=== PATIENT | female | born 1950 | race Caucasian/White ===

== ENCOUNTER 2017-02-04 08:09 | Emergency (ER) | payer MEDICARE, MEDICAID ==
[2017-02-04 09:28] LABS: ABSOLUTE LYMPHOCYTES (AUTO) 1.1 10^3/uL (0.5-4.7); ABSOLUTE MONOCYTES (AUTO) 0.4 10^3/uL (0.1-1.4); ABSOLUTE NEUT (AUTO) 6.5 10^3/uL (1.7-8.2); BASOPHILS % (AUTO) 0.5 % (0-2); EOSINOPHILS % (AUTO) 0.3 % (0-6); HEMATOCRIT 45.2 % (36.0-47.0); HEMOGLOBIN 15.7 g/dL (12.0-15.5); HGB HCT DIFFERENCE 1.9; LYMPHOCYTES % (AUTO) 14.2 % (13-45); MEAN CORPUSCULAR HEMOGLOBIN 31.7 pg (27.0-33.4); MEAN CORPUSCULAR HGB CONC 34.8 g/dL (32.0-36.0); MEAN CORPUSCULAR VOLUME 91 fl (80-97); MONOCYTES % (AUTO) 4.4 % (3-13); RED BLOOD COUNT 4.96 10^6/uL (3.72-5.28); RED CELL DISTRIBUTION WIDTH 14.4 % (11.5-14.0); SEGMENTED NEUTROPHILS % (AUTO) 80.6 % (42-78)
[2017-02-04 09:34] LABS: APPEARANCE,URINE SLIGHTLY-CLOUDY; BILIRUBIN,URINE NEGATIVE (NEGATIVE); GLUCOSE, URINE NEGATIVE (NEGATIVE); KETONES,URINE 20 mg/dL (NEGATIVE); LEUKOCYTE ESTERASE,URINE NEGATIVE (NEGATIVE); NITRITE,URINE NEGATIVE (NEGATIVE); PROTEIN,URINE 100 mg/dL (NEGATIVE); URINE SPECIFIC GRAVITY 1.012; UROBILINOGEN,URINE NEGATIVE mg/dL (<2.0)
[2017-02-04 09:53] LABS: ALANINE AMINOTRANSFERASE 31 U/L (9-52); ALBUMIN 4.4 g/dL (3.5-5.0); ALKALINE PHOSPHATASE 77 U/L (38-126); ANION GAP 9 (5-19); ASPARTATE AMINO TRANSFERASE 19 U/L (14-36); BILIRUBIN,TOTAL 0.7 mg/dL (0.2-1.3); BLOOD UREA NITROGEN 14 mg/dL (7-20); CARBON DIOXIDE 26 mmol/L (22-30); CHLORIDE 101 mmol/L (98-107); CREATININE RESULT 1.01 mg/dL (0.52-1.25); GLUCOSE 107 mg/dL (75-110); LIPASE 147.3 U/L (23-300); POTASSIUM 4.5 mmol/L (3.6-5.0); SODIUM 136.3 mmol/L (137-145); TOTAL PROTEIN 6.9 g/dL (6.3-8.2)
--- NOTE | 2017-02-04 11:14 | ER Document Report ---
ED Medical Screen (RME) - General Chief Complaint: Abdominal Pain Stated Complaint: STOMACH PAIN Time seen by provider: 11:12 Mode of Arrival: Ambulatory Information source: Patient Notes: 66-year-old female presents to ED for abdominal pain nausea and vomiting and diarrhea for 3 days states no diarrhea today since she took Kaopectate yesterday. Her primary doctor is Dr. Moreno. She denies any past medical history to do with her abdomen. She states she smokes a pack a day drinks weekly with no drugs. I have greeted and performed a rapid initial assessment of this patient. A comprehensive ED assessment and evaluation of the patient, analysis of test results and completion of medical decision making process will be conducted by an additional ED providers. TRAVEL OUTSIDE OF THE [place] IN LAST 30 DAYS: No - Related Data Allergies/Adverse Reactions: Penicillins Allergy (Severe, Verified 02/04/17 08:13) Anaphylaxis Past Medical History - Social History Chew tobacco use (# tins/day): No Frequency of alcohol use: None Drug Abuse: None Renal/ Medical History: Denies: Hx Peritoneal Dialysis Past Surgical History: Reports: Hx Appendectomy, Hx Section - x2 - Immunizations Hx Diphtheria, Pertussis, Tetanus Vaccination: - unknown Course - Laboratory Result Diagrams: 02/04/17 09:14 02/04/17 09:14 Laboratory results interpreted by me: 02/04/17 02/04/17 02/04/17 09:14 09:14 09:14 Hgb 15.7 H RDW 14.4 H Seg Neutrophils % 80.6 H Sodium 136.3 L Est GFR (Non-Af Amer) 55 L Urine Protein 100 H Urine Ketones 20 H
[2017-02-04] MEDS ORDERED: IPRATROPIUM/ALBUTEROL 0.5-2.5 MG/3 ML AMPUL NEB ONE (11:33)
[2017-02-04] MEDS ORDERED: ONDANSETRON HCL INJ/PF 4 MG/2 ML SDV IV ONE (11:33)
[2017-02-04] MEDS ORDERED: PREDNISONE 20 MG TABLET PO ONE (11:33)
[2017-02-04] MEDS ORDERED: DEXTROSE 5%-LACTATED RINGERS 1,000 ML IV ONE (11:33)
[2017-02-04] MEDS ORDERED: ALBUTEROL SULFATE 0.083% NEB 2.5 MG/3 ML AMPUL NEB ONE ×2 (11:33→14:05)
--- NOTE | 2017-02-04 11:36 | ER Document Report ---
ED General - General Time seen by provider: 11:25 Mode of Arrival: Ambulatory Information source: Patient TRAVEL OUTSIDE OF THE [place] IN LAST 30 DAYS: No - HPI Onset: Other - see HPI note Associated symptoms: Diarrhea, Nausea, Vomiting, Rhinnorhea, Weakness. denies: Fever <NIMO REARDON - Last Filed: 02/04/17 11:41> <ANAROSE - Last Filed: 02/04/17 14:34> - General Chief Complaint: Abdominal Pain Stated Complaint: STOMACH PAIN Notes: Patient is a 66 year old female presenting to the emergency department for nausea, vomiting, diarrhea, and abdominal pain. Patient reports abdominal pain but does not complain of any now. Patient states she has had these symptoms for a few days. Patient states she vomited x2 on Thursday and x1 on Thursday. Patient states she had an episode of diarrhea x1 yesterday morning. Patient also complains of generalized weakness and a productive cough with white sputum. Patient states she is hungry but cannot eat due to nausea. Patient denies any fever. Patient's PCP is Dr. Moreno. Patient is allergic to penicillin. (NIMO REARDON) - Related Data Allergies/Adverse Reactions: Penicillins Allergy (Severe, Verified 02/04/17 08:13) Anaphylaxis Past Medical History - General Information source: Patient - Social History Smoking Status: Current Every Day Smoker Cigarette use (# per day): Yes - 1 ppd Chew tobacco use (# tins/day): No Frequency of alcohol use: None Drug Abuse: None Family History: None Patient has suicidal ideation: No Patient has homicidal ideation: No - Past Medical History Cardiac Medical History: Reports: Hx Hypercholesterolemia Pulmonary Medical History: Reports: Hx COPD Psychiatric Medical History: Reports: Hx Anxiety Past Surgical History: Reports: Hx Appendectomy, Hx Section - x2 - Immunizations Hx Diphtheria, Pertussis, Tetanus Vaccination: - unknown <NIMO REARDON - Last Filed: 02/04/17 11:41> Review of Systems - Review of Systems Constitutional: See HPI, Malaise, Weakness. denies: Fever EENT: No symptoms reported Cardiovascular: No symptoms reported Respiratory: No symptoms reported Gastrointestinal: See HPI, Abdominal pain, Diarrhea, Nausea, Vomiting Genitourinary: No symptoms reported Female Genitourinary: No symptoms reported Musculoskeletal: No symptoms reported Skin: No symptoms reported Hematologic/Lymphatic: No symptoms reported Neurological/Psychological: No symptoms reported -: Yes All other systems reviewed and negative <ARLINKEESHANIMO - Last Filed: 02/04/17 11:41> Physical Exam - General General appearance: Appears well, Alert In distress: Mild - HEENT Head: Normocephalic, Atraumatic Eyes: Normal Pupils: PERRL Nasal: Clear rhinorrhea Mucous membranes: Moist - Respiratory Respiratory status: No respiratory distress. No: Other - dyspneic Chest status: Nontender Breath sounds: Rhonchi - diffuse, Wheezing - diffuse Chest palpation: Normal - Cardiovascular Rhythm: Regular Heart sounds: Normal auscultation Murmur: No - Abdominal Inspection: Normal Distension: No distension Bowel sounds: Normal Tenderness: Nontender Organomegaly: No organomegaly - Back Back: Normal, Nontender - Extremities General upper extremity: Normal inspection, Normal ROM, Normal strength General lower extremity: Normal inspection, Normal ROM, Normal strength - Neurological Neuro grossly intact: Yes Cognition: Normal Orientation: AAOx4 Sage Coma Scale Eye Opening: Spontaneous [place] Coma Scale Verbal: Oriented [place] Coma Scale Motor: Obeys Commands Sage Coma Scale Total: 15 Speech: Normal - Psychological Associated symptoms: Normal affect, Normal mood - Skin Skin Temperature: Warm Skin Moisture: Dry <NIMO REARDON - Last Filed: 02/04/17 11:41> Course - Laboratory Result Diagrams: 02/04/17 09:14 02/04/17 09:14 <NIMO REARDON - Last Filed: 02/04/17 11:41> - Laboratory Result Diagrams: 02/04/17 09:14 02/04/17 09:14 - Diagnostic Test Radiology reviewed: Image reviewed, Reports reviewed - Chest x-ray shows COPD without infiltrate. <ROSE PEREZ - Last Filed: 02/04/17 14:34> - Re-evaluation Re-evalutation: 02/04/17 14:06 Review of lab work shows a hemoglobin of 15.7, it was 13.25 months ago. This would suggest the patient is somewhat dehydrated. Her breathing has improved with the breathing treatments and she has received 1 L of IV fluid so far. She will get additional breathing treatments and IV fluids. 02/04/17 14:29 The patient refuses additional fluids or breathing treatments and wants to go home and drink water. I suspect she needs a cigarette quite badly. (ROSE PEREZ) - Vital Signs Vital signs: Temp Pulse Resp BP Pulse Ox 98.4 F 72 16 117/69 89 L 02/04/17 14:23 02/04/17 14:23 02/04/17 14:23 02/04/17 14:23 02/04/17 14:23 - Laboratory Laboratory results interpreted by me: 02/04/17 02/04/17 02/04/17 09:14 09:14 09:14 Hgb 15.7 H RDW 14.4 H Seg Neutrophils % 80.6 H Sodium 136.3 L Est GFR (Non-Af Amer) 55 L Urine Protein 100 H Urine Ketones 20 H Discharge <NIMO REARDON - Last Filed: 02/04/17 11:41> <ROSE PEREZ - Last Filed: 02/04/17 14:34> - Discharge Clinical Impression: Acute exacerbation of chronic obstructive pulmonary disease (COPD), Nausea vomiting and diarrhea, Dehydration Upper respiratory tract infection Qualifiers: URI type: unspecified URI Qualified Code(s): J06.9 - Acute upper respiratory infection, unspecified Condition: Stable Disposition: HOME, SELF-CARE Additional Instructions: Bronchitis with Bronchospasm (Wheezing): You have bronchitis with bronchospasm (wheezing). Sometimes people develop wheezing with a chest cold. This occurs either because of an underlying tendency toward asthma or because the virus itself irritates the bronchial tubes. This irritation causes cough, shortness of breath, and wheezing. Emergency treatment of bronchospasm may include adrenaline shots or bronchodilator aerosol. You may feel lightheaded and have a rapid pulse for an hour or two. Rest and get plenty of fluids. At home, we'll treat you with a bronchodilator inhaler. Corticosteroids may be required for some patients. Until you recover, avoid chemical fumes, dusts, pollens, and exercising in very cold or dry air. If you smoke, stop now! Most cases of bronchitis get better without antibiotics. We prescribe antibiotics when we believe bacteria are damaging your airways, or if there's high risk the bronchitis will worsen into pneumonia. Increase your fluid intake. A cool mist humidifier may make your lungs more comfortable. An expectorant (cough medicine that loosens phlegm) can help. Repeated episodes of bronchitis and bronchospasm may result in lung damage -- for example, chronic bronchitis, recurrent pneumonias, or emphysema. If you develop a fever, increased wheezing, chest pain, or severe shortness of breath, you should contact the doctor immediately. Gastroenteritis: You most likely have gastroenteritis. This is an irritation of the stomach and intestinal tract. It's usually caused by a virus, but can also be caused by bacteria, toxins that cause food poisoning, or excessive alcohol intake. Symptoms may include fever, painful abdominal cramps, nausea, vomiting , and diarrhea. Start with small amounts (two to six ounces) of clear liquids (soft drinks , herb teas, broth, etc). Try to take fluids frequently even if you are vomiting, to prevent dehydration. When liquids are being consumed successfully , advance to small amounts of bland food (mashed potato, toast) for 6 - 12 hours. Gastroenteritis rarely requires medication. It goes away by itself. Use good handwashing so you don't spread germs. Wash underwear in very hot water. If symptoms are severe, talk to the doctor. Call your physician if blood appears in your vomitus or stool, if vomiting lasts longer than 24 hours, if the abdominal pain worsens or becomes localized to one area, or if you develop high fever. START THE PREDNISONE AND ZITHROMAX TOMORROW. USE THE INHALER 2 PUFFS EVERY FOUR HOURS FOR WHEEZING. DRINK PLENTY OF FLUIDS. FOLLOW UP WITH DR. LACKEY IF NOT IMPROVING. RETURN TO THE EMERGENCY ROOM IF ANY NEW OR WORSENING SYMPTOMS. Prescriptions: Albuterol Sulfate [Proair HFA] 1 - 2 puff IH Q4 PRN #1 inhaler PRN Reason: Azithromycin [Zithromax 250 mg Tablet] 250 mg PO DAILY #4 tablet Prednisone [Deltasone 10 mg Tablet] 10 mg PO ASDIR PRN #21 tablet PRN Reason: Referrals: DUSTIN LACKEY MD [Primary Care Provider] - Follow up as needed Scribe Attestation: 02/04/17 14:34 I personally performed the services described in the documentation, reviewed and edited the documentation which was dictated to the scribe in my presence, and it accurately records my words and actions. (ROSE PEREZ) Scribe Documentation - Scribe Written by Charliee:: Nimo Reardon 02/04/17 13:45 acting as scribe for :: Ana <NIMO REARDON - Last Filed: 02/04/17 11:41>
[2017-02-04] MEDS ORDERED: NORMAL SALINE 1000 ML 1,000 ML IV ONE (14:05)
[2017-02-04] MEDS ORDERED: AZITHROMYCIN 250 MG TABLET PO ONE (14:07)
[2017-02-04 14:26] VITALS: BP 117/69
== END 2017-02-04 14:47 | disposition home or self-care (01) ==
LOC: ER 08:09
DX: J44.1 Chronic obstructive pulmonary disease with (acute) exacerbation (principal); J06.9 Acute upper respiratory infection, unspecified; E86.0 Dehydration; R11.2 Nausea with vomiting, unspecified; R19.7 Diarrhea, unspecified; R10.9 Unspecified abdominal pain; R53.1 Weakness; F17.200 Nicotine dependence, unspecified, uncomplicated
CPT/HCPCS: 94640 ×2; 99284; 96374; 36415; 83690; 85025; 80053; 81001; 71010; A9270 ×4; J2405; J7512; J7620

== ENCOUNTER 2017-05-18 10:59 | Emergency (ER) | payer MEDICARE, MEDICAID ==
[2017-05-18] MEDS ORDERED: NORMAL SALINE 1000 ML 1,000 ML IV PRN (11:27)
[2017-05-18] MEDS ORDERED: MECLIZINE HCL 25 MG TABLET PO ONE (11:27)
--- NOTE | 2017-05-18 11:28 | ER Document Report ---
ED Medical Screen (RME) - General Chief Complaint: Dizziness Stated Complaint: ABDOMINAL PAIN Time Seen by Provider: 05/18/17 11:22 Mode of Arrival: Wheelchair Information source: Patient TRAVEL OUTSIDE OF THE [place] IN LAST 30 DAYS: No - HPI Patient complains to provider of: dizziness, nausea Notes: 05/18/17 11:27 Patient is a 66-year-old female with history of [place] and COPD, who currently smokes 1 pack per day, she presents to the emergency room complaining of 2 week history of intermittent dizziness with nausea, blurred vision, occasional vomiting, she denies a headache, denies pain anywhere, denies dysuria, no fever , she does report urinary frequency over the past few days - Related Data Allergies/Adverse Reactions: Penicillins Allergy (Severe, Verified 05/18/17 11:19) Anaphylaxis Past Medical History - Past Medical History Cardiac Medical History: Reports: Hx Hypercholesterolemia Pulmonary Medical History: Reports: Hx COPD Renal/ Medical History: Denies: Hx Peritoneal Dialysis Psychiatric Medical History: Reports: Hx Anxiety Past Surgical History: Reports: Hx Appendectomy, Hx Section - x2 - Immunizations Hx Diphtheria, Pertussis, Tetanus Vaccination: - unknown Physical Exam - Vital signs Vitals: Temp Pulse Resp BP Pulse Ox 97.7 F 71 22 H 101/67 98 05/18/17 11:20 05/18/17 11:20 05/18/17 11:20 05/18/17 11:20 05/18/17 11:20 Course - Vital Signs Vital signs: Temp Pulse Resp BP Pulse Ox 97.7 F 71 22 H 101/67 98 05/18/17 11:20 05/18/17 11:20 05/18/17 11:20 05/18/17 11:20 05/18/17 11:20
[2017-05-18 11:59] LABS: ABSOLUTE EOSINOPHILS # (AUTO) 0.2 10^3/uL (0.0-0.6); ABSOLUTE LYMPHOCYTES (AUTO) 1.9 10^3/uL (0.5-4.7); ABSOLUTE MONOCYTES (AUTO) 0.6 10^3/uL (0.1-1.4); ABSOLUTE NEUT (AUTO) 6.8 10^3/uL (1.7-8.2); BASOPHILS % (AUTO) 0.4 % (0-2); HEMATOCRIT 48.9 % (36.0-47.0); HEMOGLOBIN 16.1 g/dL (12.0-15.5); HGB HCT DIFFERENCE -0.6; LYMPHOCYTES % (AUTO) 20.3 % (13-45); MEAN CORPUSCULAR HEMOGLOBIN 31.2 pg (27.0-33.4); MEAN CORPUSCULAR HGB CONC 32.9 g/dL (32.0-36.0); MEAN CORPUSCULAR VOLUME 95 fl (80-97); MONOCYTES % (AUTO) 5.9 % (3-13); RED BLOOD COUNT 5.16 10^6/uL (3.72-5.28); RED CELL DISTRIBUTION WIDTH 12.9 % (11.5-14.0); SEGMENTED NEUTROPHILS % (AUTO) 71.4 % (42-78); WHITE BLOOD COUNT 9.6 10^3/uL (4.0-10.5)
[2017-05-18 12:22] LABS: ALANINE AMINOTRANSFERASE 15 U/L (9-52); ALBUMIN 4.2 g/dL (3.5-5.0); ALKALINE PHOSPHATASE 63 U/L (38-126); ANION GAP 11 (5-19); ASPARTATE AMINO TRANSFERASE 17 U/L (14-36); BILIRUBIN,DIRECT 0.4 mg/dL (0.0-0.4); BILIRUBIN,TOTAL 0.6 mg/dL (0.2-1.3); BLOOD UREA NITROGEN 18 mg/dL (7-20); CALCIUM 9.8 mg/dL (8.4-10.2); CARBON DIOXIDE 25 mmol/L (22-30); CHLORIDE 105 mmol/L (98-107); CREATINE KINASE 38 U/L (30-135); CREATININE RESULT 1.21 mg/dL (0.52-1.25); GLUCOSE 97 mg/dL (75-110); LIPASE 282.2 U/L (23-300); POTASSIUM 4.8 mmol/L (3.6-5.0); SODIUM 141.3 mmol/L (137-145)
[2017-05-18 12:33] LABS: CREATINE KINASE MB 0.98 ng/mL (<4.55); TROPONIN I 0.014 ng/mL
--- NOTE | 2017-05-18 13:39 | RADIOLOGY REPORT (SQ) ---
EXAM DESCRIPTION: CHEST PA/LAT COMPLETED DATE/TIME: 05/18/2017 1:21 pm REASON FOR STUDY: sob COMPARISON: 02/04/2017 EXAM PARAMETERS: NUMBER OF VIEWS: two views TECHNIQUE: Digital Frontal and Lateral radiographic views of the chest acquired. RADIATION DOSE: NA LIMITATIONS: none FINDINGS: LUNGS AND PLEURA: The lung flynn are hyperexpanded. There is no focal airspace disease i n the right medial base most consistent with atelectasis. There is no focal consolidation. No effus ions. MEDIASTINUM AND HILAR STRUCTURES: No masses or contour abnormalities. HEART AND VASCULAR STRUCTURES: Heart normal size. No evidence for failure. BONES: No acute findings. HARDWARE: None in the chest. OTHER: No other significant finding. IMPRESSION: COPD with right basilar airspace disease new from prior study this is most consistent wi th atelectasis. TECHNICAL DOCUMENTATION: JOB ID: [id number] [employer]- All Rights Reserved
[2017-05-18] MEDS ORDERED: IPRATROPIUM/ALBUTEROL 0.5-2.5 MG/3 ML AMPUL NEB ONE (14:25)
--- NOTE | 2017-05-18 14:31 | ER Document Report ---
ED Dizziness/Weakness - General Chief Complaint: Dizziness Stated Complaint: ABDOMINAL PAIN Time Seen by Provider: 05/18/17 11:22 Mode of Arrival: Wheelchair Information source: Patient, [facility] Records Notes: This 66-year-old female patient comes emergency room complaining of about a 2 week history of intermittent dizziness with nausea and blurred vision. There is occasional vomiting. She also reports urinary frequency for a few days. She does suffer from severe COPD, and does continue to smoke. He was given Antivert at triage, and reports that his symptoms have cleared up since taking that medication and she feels much better at this time. She also reports that the wheezing and rhonchi that she has this time is normal for her and her breathing feels about normal for her. TRAVEL OUTSIDE OF THE [place] IN LAST 30 DAYS: No - Related Data Allergies/Adverse Reactions: Penicillins Allergy (Severe, Verified 05/18/17 11:19) Anaphylaxis Past Medical History - General Information source: Patient, [facility] Records - Social History Smoking Status: Current Every Day Smoker Cigarette use (# per day): Yes Chew tobacco use (# tins/day): No Smoking Education Provided: No Frequency of alcohol use: None Drug Abuse: None Occupation: Unemployed Lives with: Family Family History: None Patient has suicidal ideation: No Patient has homicidal ideation: No - Past Medical History Cardiac Medical History: Reports: Hx Hypercholesterolemia Pulmonary Medical History: Reports: Hx COPD EENT Medical History: Reports: None Neurological Medical History: Reports: None Endocrine Medical History: Reports: None Renal/ Medical History: Reports: None GI Medical History: Reports: None Musculoskeltal Medical History: Reports None Psychiatric Medical History: Reports: Hx Anxiety Past Surgical History: Reports: Hx Appendectomy, Hx Section - x2 - Immunizations Hx Diphtheria, Pertussis, Tetanus Vaccination: - unknown Review of Systems - Review of Systems Constitutional: No symptoms reported EENT: No symptoms reported Cardiovascular: No symptoms reported Respiratory: Cough, Wheezing Gastrointestinal: See HPI Genitourinary: See HPI Female Genitourinary: Post menopausal Musculoskeletal: No symptoms reported Skin: No symptoms reported Hematologic/Lymphatic: No symptoms reported Neurological/Psychological: See HPI, Other - Dizziness Physical Exam - Vital signs Vitals: Temp Pulse Resp BP Pulse Ox 97.7 F 71 22 H 101/67 98 05/18/17 11:20 05/18/17 11:20 05/18/17 11:20 05/18/17 11:20 05/18/17 11:20 Interpretation: Normal - General General appearance: Appears well, Alert In distress: None - HEENT Head: Normocephalic, Atraumatic Eyes: Normal Pupils: PERRL Neck: Normal - Respiratory Respiratory status: No respiratory distress Breath sounds: Nonproductive cough, Rhonchi, Wheezing Chest palpation: Normal - Cardiovascular Rhythm: Regular Heart sounds: Normal auscultation Murmur: No - Abdominal Inspection: Normal Bowel sounds: Normal - Back Back: Normal - Extremities General upper extremity: Normal inspection General lower extremity: Normal inspection - Neurological Neuro grossly intact: Yes - Psychological Associated symptoms: Normal affect, Normal mood - Skin Skin Temperature: Warm Skin Moisture: Dry Skin Color: Normal Course - Re-evaluation Re-evalutation: 05/18/17 16:01 Urinalysis is unremarkable other than being concentrated. Vertigo symptoms are improved after the Antivert. - Vital Signs Vital signs: Temp Pulse Resp BP Pulse Ox 97.7 F 71 20 127/78 H 96 05/18/17 11:20 05/18/17 11:20 05/18/17 15:28 05/18/17 15:28 05/18/17 15:28 - Laboratory Result Diagrams: 05/18/17 11:40 05/18/17 11:40 Laboratory results interpreted by me: 05/18/17 05/18/17 11:40 11:40 Hgb 16.1 H Hct 48.9 H Est GFR ( Amer) 54 L Est GFR (Non-Af Amer) 45 L Discharge - Discharge Clinical Impression: Vertigo Condition: Stable Disposition: HOME, SELF-CARE Additional Instructions: Vertigo: You have experienced an episode of vertigo -- a whirling dizziness which may be accompanied by nausea and vomiting or staggering. Vertigo is often caused by an irritation of the inner ear, in which case it is called labyrinthitis. It can also be a symptom of a degenerating inner ear, nerve damage, or brain injury. Your physician has evaluated you to determine whether any further testing is necessary. Vertigo is often treated with dramamine or meclizine. These medications are helpful, but stronger medication may be needed if you are vomiting. Rest in bed. You should not drive or operate machinery until completely better. It may take one to three weeks for recovery. If there are new symptoms, such as decreased hearing or vision, severe headache, weakness or faintness, or confusion, call the physician. RETURN TO THE EMERGENCY ROOM IF ANY NEW OR WORSENING SYMPTOMS. Prescriptions: Meclizine HCl [Antivert 25 mg Tablet] 25 mg PO TID PRN #25 tablet PRN Reason: Referrals: DUSTIN LACKEY MD [Primary Care Provider] - Follow up as needed
[2017-05-18 16:15] VITALS: BP 105/65
--- NOTE | 2017-05-18 18:55 | EKG REPORT ---
SEVERITY:- OTHERWISE NORMAL ECG - SINUS OR ECTOPIC ATRIAL RHYTHM BORDERLINE RIGHT AXIS DEVIATION : Confirmed by: Chase Lozoya 18-May-2017 18:54:41
== END 2017-05-18 16:26 | disposition home or self-care (01) ==
LOC: ER 10:59
DX: R42 Dizziness and giddiness (principal); R11.0 Nausea; H53.8 Other visual disturbances; F17.210 Nicotine dependence, cigarettes, uncomplicated; J44.9 Chronic obstructive pulmonary disease, unspecified; R05 Cough; Z88.0 Allergy status to penicillin; Z87.892 Personal history of anaphylaxis
CPT/HCPCS: 93005; 94640; 99284; 96360; 36415; 82553; 82550; 83690; 85025; 80053; 84484; 71020; 93010; A9270 ×2; J7030; J7620

== ENCOUNTER 2019-12-01 11:37 | Emergency (ER) | payer MEDICARE, MEDICAID ==
[2019-12-01 11:53] VITALS: BP 125/66
[2019-12-01] MEDS ORDERED: IPRATROPIUM/ALBUTEROL 0.5-2.5 MG/3 ML AMPUL NEB ONE (12:16)
--- NOTE | 2019-12-01 12:20 | ER Document Report ---
ED Medical Screen (RME) - General Chief Complaint: Shortness Of Breath Stated Complaint: LEG PAIN Time Seen by Provider: 12/01/19 12:07 Primary Care Provider: DUSTIN LACKEY MD [Primary Care Provider] - Follow up as needed TRAVEL OUTSIDE OF THE [place] IN LAST 30 DAYS: No - HPI Notes: 12/01/19 12:16 69-year-old female with a history of COPD, previous MIs presents emergency room for complaints of shortness of breath with ambulation as well as bilateral leg weakness and sacral numbness and tingling for the last 2 to 3 days. Patient denies any chest pain, she is a pack-a-day smoker for well over 40 years. Patient states when she elevates her legs her numbness and tingling goes away. Denies any previous history of chronic back pain or radiculopathies. I have greeted and performed a rapid initial assessment of this patient. A comprehensive ED assessment and evaluation of the patient, analysis of test results and completion of the medical decision making process will be conducted by additional ED providers. PHYSICAL EXAMINATION: GENERAL: Chronically ill, malnourished and in no acute distress. HEAD: Atraumatic, normocephalic. EYES: Pupils equal round extraocular movements intact, conjunctiva are normal. NECK: Normal range of motion CV: s1, s2 regular LUNGS: Diminished breath sounds throughout Musculoskeletal: Normal range of motion. Strength 5 out of 5 in bilateral lower extremities equally, tenderness to sacrum as 1 to S2. Distal pulses +2 in bilateral lower extremities equally. NEUROLOGICAL: Normal speech, normal gait. SKIN: Warm, Dry, normal turgor, no rashes or lesions noted. - Related Data Allergies/Adverse Reactions: Penicillins Allergy (Severe, Verified 05/18/17 11:19) Anaphylaxis Past Medical History - Past Medical History Cardiac Medical History: Reports: Hx Hypercholesterolemia Pulmonary Medical History: Reports: Hx COPD Renal/ Medical History: Denies: Hx Peritoneal Dialysis Psychiatric Medical History: Reports: Hx Anxiety Past Surgical History: Reports: Hx Appendectomy, Hx Section - x2 - Immunizations Hx Diphtheria, Pertussis, Tetanus Vaccination: - unknown Physical Exam - Vital signs Vitals: Temp Pulse Resp BP Pulse Ox 98.9 F 67 16 125/66 99 12/01/19 11:52 12/01/19 11:52 12/01/19 11:52 12/01/19 11:52 12/01/19 11:52 Course - Vital Signs Vital signs: Temp Pulse Resp BP Pulse Ox 98.9 F 67 16 125/66 99 12/01/19 11:52 12/01/19 11:52 12/01/19 11:52 12/01/19 11:52 12/01/19 11:52 Doctor's Discharge - Discharge Referrals: DUSTIN LACKEY MD [Primary Care Provider] - Follow up as needed
[2019-12-01 13:23] LABS: APPEARANCE,URINE SLIGHTLY-CLOUDY; BILIRUBIN,URINE NEGATIVE (NEGATIVE); COLOR,URINE YELLOW; GLUCOSE, URINE NEGATIVE (NEGATIVE); KETONES,URINE TRACE mg/dL (NEGATIVE); LEUKOCYTE ESTERASE,URINE NEGATIVE (NEGATIVE); NITRITE,URINE NEGATIVE (NEGATIVE); PROTEIN,URINE 100 mg/dL (NEGATIVE); URINE SPECIFIC GRAVITY 1.019
[2019-12-01 13:24] LABS: ABSOLUTE BASOPHILS # (AUTO) 0.1 10^3/uL (0.0-0.2); ABSOLUTE EOSINOPHILS # (AUTO) 0.1 10^3/uL (0.0-0.6); ABSOLUTE LYMPHOCYTES (AUTO) 1.9 10^3/uL (0.5-4.7); ABSOLUTE MONOCYTES (AUTO) 0.6 10^3/uL (0.1-1.4); ABSOLUTE NEUT (AUTO) 6.6 10^3/uL (1.7-8.2); BASOPHILS % (AUTO) 0.7 % (0-2); EOSINOPHILS % (AUTO) 1.4 % (0-6); HEMATOCRIT 44.2 % (36.0-47.0); HEMOGLOBIN 15.3 g/dL (12.0-15.5); LYMPHOCYTES % (AUTO) 20.2 % (13-45); MEAN CORPUSCULAR HEMOGLOBIN 32.3 pg (27.0-33.4); MEAN CORPUSCULAR HGB CONC 34.6 g/dL (32.0-36.0); MEAN CORPUSCULAR VOLUME 93 fl (80-97); MONOCYTES % (AUTO) 6.4 % (3-13); PLATELET COUNT 323 10^3/uL (150-450); RED BLOOD COUNT 4.73 10^6/uL (3.72-5.28); RED CELL DISTRIBUTION WIDTH 12.8 % (11.5-14.0); SEGMENTED NEUTROPHILS % (AUTO) 71.3 % (42-78); TOTAL CELLS COUNTED % (AUTO) 100 %; WHITE BLOOD COUNT 9.2 10^3/uL (4.0-10.5)
[2019-12-01 13:42] LABS: ALBUMIN 4.1 g/dL (3.5-5.0); ALKALINE PHOSPHATASE 70 U/L (38-126); ANION GAP 10 (5-19); ASPARTATE AMINO TRANSFERASE 16 U/L (14-36); BILIRUBIN,DIRECT 0.3 mg/dL (0.0-0.4); BILIRUBIN,TOTAL 0.6 mg/dL (0.2-1.3); BLOOD UREA NITROGEN 22 mg/dL (7-20); CALCIUM 9.9 mg/dL (8.4-10.2); CARBON DIOXIDE 27 mmol/L (22-30); CHLORIDE 102 mmol/L (98-107); GLUCOSE 107 mg/dL (75-110); POTASSIUM 4.8 mmol/L (3.6-5.0); TOTAL PROTEIN 7.4 g/dL (6.3-8.2)
[2019-12-01 13:55] LABS: TROPONIN I 0.019 ng/mL
--- NOTE | 2019-12-01 14:11 | RADIOLOGY REPORT (SQ) ---
EXAM DESCRIPTION: SACRUM AND COCCYX COMPLETED DATE/TIME: 12/01/2019 1:34 pm REASON FOR STUDY: sacral numbness, bilateral leg weakness COMPARISON: None. NUMBER OF VIEWS: Three views. TECHNIQUE: AP, lateral, and tilt views of the sacrum and coccyx. LIMITATIONS: None. FINDINGS: MINERALIZATION: Normal. BONES: No acute fracture or dislocation. No worrisome bone lesions. SOFT TISSUES: Tubal ligation clips. OTHER: No other significant finding. IMPRESSION: NEGATIVE STUDY OF THE SACRUM AND COCCYX. TECHNICAL DOCUMENTATION: JOB ID: [id number] [employer]- All Rights Reserved Reading location - IP/workstation name: [email or web address]
--- NOTE | 2019-12-01 14:11 | RADIOLOGY REPORT (SQ) ---
EXAM DESCRIPTION: CHEST SINGLE VIEW COMPLETED DATE/TIME: 12/01/2019 1:34 pm REASON FOR STUDY: sob COMPARISON: 05/18/2017 NUMBER OF VIEWS: One view. TECHNIQUE: Single frontal radiographic view of the chest acquired. LIMITATIONS: None. FINDINGS: LUNGS AND PLEURA: No opacities, masses or pneumothorax. No pleural effusion. Attenuated bl ood vessels and flattened kimberly-diaphragms. MEDIASTINUM AND HILAR STRUCTURES: No masses. Contour normal. HEART AND VASCULAR STRUCTURES: Heart normal in size. Normal vasculature. BONES: No acute findings. HARDWARE: None in the chest. OTHER: No other significant finding. IMPRESSION: COPD. NO ACUTE RADIOGRAPHIC FINDING IN THE CHEST. TECHNICAL DOCUMENTATION: JOB ID: [id number] [employer]- All Rights Reserved Reading location - IP/workstation name: [email or web address]
== END 2019-12-01 16:50 | disposition left against medical advice (07) ==
LOC: ER 11:37
DX: R06.02 Shortness of breath (principal); J44.9 Chronic obstructive pulmonary disease, unspecified; R20.0 Anesthesia of skin; E78.00 Pure hypercholesterolemia, unspecified; Z88.0 Allergy status to penicillin; I25.2 Old myocardial infarction
CPT/HCPCS: 94640; 99281; 36415; 85025; 80053; 81001; 84484; 83880; 71045; 72220; A9270; J7620

== ENCOUNTER → 2019-12-14 | Outpatient (CLI) | payer MEDICARE, MEDICAID ==
--- NOTE | 2019-12-14 11:16 | XCELERA REPORT ---
[address] [address] Lower Extremity Arterial Evaluation Name: ERIC FERRER Age: 69 yrs Gender: Female : 1950 Patient Status: Outpatient Patient Location: [facility] Study Date: 12/14/2019 08:57 AM Procedure: A color flow and duplex scan of the lower extremity arteries was performed bilaterally with velocity and waveform anaylsis. Reason For Study: ATHEROSCLEROSIS Ordering Physician: DUSTIN LACKEY Performed By: Tacho Solis Measurements and Calculations Right Left INSURANCE VERIFICATION REPRESENTATIVE PSV 72.3 65.6 cm/sec Prox PFA PSV -63.5 -31.8 cm/sec Prox SFA PSV -73.3 -47.6 cm/sec Mid SFA PSV -69.8 -43.6 cm/sec Dist SFA PSV -35.4 -32.6 cm/sec Prox Pop A PSV 32.6 25.3 cm/sec Dist Pop A PSV -23.6 -21.4 cm/sec Dist DEJAN PSV 8.1 13.2 cm/sec Dist SANITARIAN INSPECTOR PSV 11.6 14.7 cm/sec Dist Anibal A 9.6 6.7 cm/sec PSV Jose Angel Pedis PSV -7.5 7.7 cm/sec Right Side Arterial Evaluation Normal velocity and monophasicwaveforms, spectral broadening noted in the Common Femoral artery Low velocity and monophasicwaveforms, spectral broadening in the Femoral . . Very low velocity,monophasic waveform, spectral broadening from the Popliteal to the infrageniculate vessels. Ankle Brachial index not done. Left Side Arterial Evaluation Normal velocity and monophasic waveforms, spectral broadening noted in the Common Femoral artery Low velocity and monophasic waveforms, spectral broadening in the Femoral . . Very low velocity, monophasic waveform spectral broadening from the Popliteal to the infrageniculate vessels. Ankle Brachial index not done. Interpretation Summary Severe hemodynamically significant lesions in the bilateral lower extremities, on duplex imaging, at rest. Duplex imaging shows no focal stenosis. Bilateral inflow disease with sequential worsening of blood flow to the infrageniculate level, as noted. : DUSTIN LACKEY > Moreno Zamora
== END ==
LOC: SP 08:02
PROVIDERS: ATTEND Family Medicine
DX: I70.211 Atherosclerosis of native arteries of extremities with intermittent claudication, right leg (principal); I70.212 Atherosclerosis of native arteries of extremities with intermittent claudication, left leg
CPT/HCPCS: 93925

== ENCOUNTER → 2020-04-05 | Outpatient (CLI) | payer MEDICARE, MEDICAID ==
--- NOTE | 2020-04-05 11:02 | RADIOLOGY REPORT (SQ) ---
EXAM DESCRIPTION: CTA ABD AORTA AND EXTREMITY IMAGES COMPLETED DATE/TIME: 04/05/2020 10:16 am REASON FOR STUDY: PAD (I70.213) I70.213 ATHSCL [place] ARTERIES OF EXTRM W INTRMT SHE, BI L COMPARISON: None. TECHNIQUE: CT scan of the iliac bifurcation and lower extremities performed with intravenous contras t using helical scanning technique with dynamic intravenous contrast injection. Images reviewed with lung, soft tissue, and bone windows. Reconstructed coronal and sagittal MPR images reviewed. All imag es stored on PACS. Advanced 3D imaging as volume-rendering, MIPs, SSD performed? yes All CT scanners at this facility use dose modulation, iterative reconstruction, and/or weight based d osing when appropriate to reduce radiation dose to as low as reasonably achievable (ALARA). [facility]: Dose Right [facility]: CareDose [facility]: Dose Right [facility]: Teradose 4D [facility]: reportbrain CONTRAST TYPE AND DOSE: contrast/concentration: Isovue 350.00 mg/ml; Total Contrast Delivered: 45.0 ml; Total Saline Delivered: 66.0 ml RENAL FUNCTION: GFR > 60. LIMITATIONS: None. FINDINGS: There is severe diffuse disease in the common iliac, external iliac arteries. Severe diff use disease in the femoral arteries bilaterally with collaterals in the distal thigh. Popliteal bernadette ry and tibioperoneal trunk are patent. Three-vessel runoff with attenuated vessels in the distal fredi f and ankles. Artifact in the pelvic floor from tubal ligation clips. Otherwise unremarkable. IMPRESSION: Severe diffuse disease without focal high-grade stenosis. TECHNICAL DOCUMENTATION: JOB ID: [id number] Quality ID # [id number]: Final reports with documentation of one or more dose reduction techniques (e.g., Au tomated exposure control, adjustment of the mA and/or kV according to patient size, use of iterative reconstruction technique) 2010 [employer]- All Rights Reserved Reading location - IP/workstation name: [email or web address]
== END ==
LOC: RAD 09:39
PROVIDERS: ATTEND Surgery Vascular Surgery
DX: I70.213 Atherosclerosis of native arteries of extremities with intermittent claudication, bilateral legs (principal)
CPT/HCPCS: 75635; 82565